=== PATIENT | female | born 1975 | race African-American/Black ===

== ENCOUNTER → 2017-09-01 | Outpatient (CLI) | payer OTHER ==
[2017-09-01 08:22] LABS: PLATELET COUNT 275 x10^3mcL (130-400)
[2017-09-01 08:24] LABS: RED CELL DISTRIBUTION WIDTH 17.1 % (11.5-14.5)
[2017-09-01 08:54] LABS: ALKALINE PHOSPHATASE 58 U/L (46-116); ALT/SGPT 18 U/L (14-59); AST/SGOT 15 U/L (15-37); CALCIUM 8.4 mg/dL (8.5-10.1); CARBON DIOXIDE 26.9 mmol/L (21-32); CHLORIDE SERUM 105 mmol/L (98-107); CREATININE SERUM 0.7 mg/dL (0.6-1.0); GFR1 > 60 mL/min; GLUCOSE SERUM 83 mg/dL (74-106); HDL CHOLESTEROL 44 mg/dL (40-60); POTASSIUM SERUM 3.8 mmol/L (3.5-5.1); SODIUM SERUM 141 mmol/L (136-145); TOTAL PROTEIN, SERUM 7.4 g/dL (6.4-8.2); TRIGLYCERIDES 83 mg/dL (<150)
[2017-09-01 09:01] LABS: ALBUMIN 3.3 g/dL (3.4-5.0); CHOLESTEROL 209 mg/dL (<200); CHOLESTEROL/HDL RATIO 4.8
== END | disposition home or self-care (01) ==
LOC: LB 07:57
PROVIDERS: Family Medicine Geriatric Medicine
DX: I10 Essential (primary) hypertension (principal); E03.9 Hypothyroidism, unspecified; Z13.21 Encounter for screening for nutritional disorder; Z13.1 Encounter for screening for diabetes mellitus; Z13.0 Encounter for screening for diseases of the blood and blood-forming organs and certain disorders involving the immune mechanism; Z13.220 Encounter for screening for lipoid disorders
CPT/HCPCS: 82652

== ENCOUNTER → 2018-03-07 | Outpatient (CLI) | payer OTHER | END | disposition home or self-care (01) | LOC: US 09:12 | PROC: BW4GZZZ Ultrasonography of Pelvic Region (ICD-10-PCS; principal; 2018-03-07) | DX: N92.6 Irregular menstruation, unspecified (principal); R10.2 Pelvic and perineal pain ==